=== PATIENT | female | born 1955 ===

== ENCOUNTER → 2019-05-27 | Outpatient (CLI) | payer OTHER ==
[~2019-05-27] MED LIST: ATEN100 PO; BUPR100ER PO; BUPR75; CETI10; CONCERTA; DIPATR PO; DOXY100; FLUSAL1005 INH; GABA100 PO; GABA600 PO; K-Dur20 MEQ PO; LEVSOD75 PO; LISI20 PO; METF500 PO; METR500 PO; NEUPRO1 EAC1 TD; Norco 5-325 Ta1 EACH PO; Omeprazole20 M1 PO; PREVACID; PROC5 PO; Percocet 5-3251 EACH PO; Robaxin500 MG PO; SERT100 PO; SULTRIDS PO; TRAZ50 PO; UNK DIURETIC; Ventolin/Prove6.7 GM INH; Zofran Odt4 MG SL; Zofran Odt8 MG SL
== END | disposition home or self-care (01) ==
LOC: LAB EV 14:50 → LAB SHORT 14:50
DX: R30.0 Dysuria (principal)
CPT/HCPCS: 87086

== ENCOUNTER → 2019-05-30 | Outpatient (CLI) | payer OTHER | END | disposition home or self-care (01) | LOC: PLD 08:19 → LAB SHORT 08:19 | DX: D04.39 Carcinoma in situ of skin of other parts of face (principal); L57.0 Actinic keratosis | CPT/HCPCS: 88305 ==